=== PATIENT | male | born 1965 | race Caucasian/White ===

== ENCOUNTER 2019-01-03 11:20 | Day surgery (SDC) | payer BC ==
[~2019-01-03] VITALS: Ht 177.8 cm; Wt 89.5 kg
[2019-01-03] VITALS (9 sets, daily range): BP systolic 113–145; BP diastolic 63–87
[2019-01-03] MEDS ORDERED: normal saline 1,000 ML IV SCH (11:50)
[2019-01-03] MEDS ORDERED: LORazepam 0.5 MG tablet PO PRN (11:50)
[2019-01-03] MEDS ORDERED: LIDOcaine/PRILOcaine 5gm cream TP ONE (11:50)
[2019-01-03] MEDS ORDERED: diphenhydrAMINE 25mg capsule PO PRN (11:50)
[2019-01-03] MEDS ORDERED: TADA5TAB2 PO (12:16)
[2019-01-03] MEDS ORDERED: ASPI-1053 PO (12:16)
[2019-01-03] MEDS ORDERED: FLO0.4C PO (12:16)
[2019-01-03] MEDS ORDERED: MULT-933 PO (12:16)
[2019-01-03] MEDS ORDERED: AMLO10TA PO (12:16)
[2019-01-03] MEDS ORDERED: KRIL500C PO (12:16)
[2019-01-03] MEDS ORDERED: verapamil 2.5 mg/ml inj IV ONE (12:57)
[2019-01-03] MEDS ORDERED: nitroGLYCERIN-Tridil 50MG/D5W 250 ML IV ONE (12:57)
[2019-01-03] MEDS ORDERED: fentaNYL/PF 50MCG/1 ML 2ML syringe ONE (12:57)
[2019-01-03] MEDS ORDERED: iohexol 350MG/ML 100ml bottle IV ONE (12:57)
[2019-01-03] MEDS ORDERED: midazolam 2 mg/2 ml injection ONE (12:57)
[2019-01-03] MEDS ORDERED: heparin 1,000unit/ml 10ml vial 10 ML ONE (12:57)
[2019-01-03] MEDS ORDERED: LIDOcaine 1% (10mg/ml)w/preservative injection 20ml MDV ONE (12:58)
[2019-01-03] MEDS ORDERED: HYDROcodone/acetaminophen 5mg/325mg tablet PO PRN (16:00)
[2019-01-03] MEDS ORDERED: ondansetron/PF 4mg/2ml inj IV PRN (16:00)
[2019-01-03] MEDS ORDERED: HYDROcodone/acetaminophen 10/325mg tab PO PRN (16:05)
[2019-01-03] MEDS ORDERED: OXAZEpam 15mg capsule PO PRN (16:05)
[2019-01-03] MEDS ORDERED: proCHLORperazine 10 MG/2 ml inj IV PRN (16:05)
== END 2019-01-03 18:15 | disposition home or self-care (01) ==
LOC: SSTAY O 11:20
PROVIDERS: ATTEND Internal Medicine Interventional Cardiology
DX: R94.30 Abnormal result of cardiovascular function study, unspecified (principal); I35.0 Nonrheumatic aortic (valve) stenosis; I10 Essential (primary) hypertension; G47.33 Obstructive sleep apnea (adult) (pediatric); Z79.899 Other long term (current) drug therapy; Z87.891 Personal history of nicotine dependence
CPT/HCPCS: 93005; 93458; 99152; C1769; J1644; J2001; J2250; J3010; J7030; Q0163; Q9967; J3490